=== PATIENT | female | born 1975 | race Two or more races ===

== ENCOUNTER 2017-01-06 19:36 | Emergency (ER) | payer BC ==
[~2017-01-06] VITALS: Ht 152.4 cm; Wt 4.3 kg
[2017-01-06 20:35] LABS: Basophils # (auto) 0.1 uL; Basophils % (auto) 0.9 % (0.0-2.0); CONDITION Y; Eosinophils # (auto) 0.2 uL; Eosinophils % (auto) 3.4 % (0.0-7.0); Hematocrit 44.2 % (36.0-46.0); Hemoglobin 14.8 g/dL (12.2-16.2); Lymphocytes # (auto) 1.5 uL; Lymphocytes % (auto) 22.3 % (10.0-50.0); Mean Corpuscular Hemoglobin 32.2 pg (28.0-32.0); Mean Corpuscular Hgb Conc. 33.5 g/dL (32.0-36.0); Mean Corpuscular Volume 96.2 fL (80.0-100.0); Mean Platelet Volume 8.4 fL (7.4-10.4); Monocytes # (auto) 0.4 uL; Monocytes % (auto) 6.3 % (0.0-12.0); Neutrophils # (auto) 4.6 uL; Neutrophils % (auto) 67.1 % (37.0-80.0); Platelet Count (auto) 325 10^3/uL (140-450); Red Cell Distribution Width 14.6 % (11.6-16.0); White Blood Cell 6.8 10^3/uL (4.4-10.8)
[2017-01-06 21:00] LABS: Urine Blood Negative /uL (Negative); Urine Color Yellow (Yellow); Urine Glucose Normal (Normal); Urine Ketone Negative (Negative); Urine Mucus FEW (None Seen); Urine Nitrite Negative (Negative); Urine RBC 1 /hpf (0 - 4); Urine Squamous Epithelial Cell FEW /hpf (<5); Urine Urobilinogen Normal (Negative); Urine pH 5.5 (5.0-8.0)
[2017-01-06 21:09] LABS: Urine Bilirubin 2+ (Negative)
[2017-01-06 21:11] LABS: Albumin 3.6 g/dL (3.4-5.0); BUN/Creatinine Ratio 9.8; Bilirubin, Total 14.2 mg/dL (0.2-1.0); Calcium 8.9 mg/dL (8.5-10.1); Potassium 3.5 mmol/L (3.5-5.1); Total Protein 7.4 g/dL (6.4-8.2)
[2017-01-06 22:53] LABS: Bilirubin, Direct 10.8 mg/dL (0-0.2)
[2017-01-07 06:03] LABS: INR 0.96 (0.9-1.15); Partial Thromboplastin Time 27.6 sec (22.64-33.71); Prothrombin Time 10.5 sec (9.37-12.3)
[2017-01-07 06:30] VITALS: BP 124/72
== END 2017-01-07 06:48 | disposition home or self-care (01) ==
LOC: ER 19:40 → EDSEX 19:40 → ER 01-07 06:48
DX: K83.1 Obstruction of bile duct (principal); K08.409 Partial loss of teeth, unspecified cause, unspecified class; Q96.9 Turner's syndrome, unspecified
CPT/HCPCS: 36415; 74176; 76705; 80053; 80074; 80307; 80320; 81001; 81025; 82248; 83690; 85025; 85379; 85610; 85730